=== PATIENT | male | born 1955 | race Caucasian/White ===

== ENCOUNTER 2017-06-19 10:28 | Day surgery (SDC) | payer OTHER | END 2017-06-19 11:11 | disposition home or self-care (01) | LOC: CATHLABREC 10:28 | PROVIDERS: ATTEND Physical Medicine & Rehabilitation | DX: M51.26 Other intervertebral disc displacement, lumbar region (principal); Z53.8 Procedure and treatment not carried out for other reasons ==

== ENCOUNTER 2017-06-26 07:43 | Day surgery (SDC) | payer OTHER ==
[2017-06-26 09:27] LABS: INR 0.95 (0.87-1.13)
[2017-06-26 09:28] LABS: Partial Thromboplastin Time 30.6 Sec. (24.2-36.6)
--- NOTE | 2017-06-26 11:01 | Short Stay Summary ---
Short Stay Documentation Date of service: 06/26/17 Narrative H&P: low back pain with radiculopathy to LLE - History Principal diagnosis: radiculopathy H&P: dictated - Allergies and Medications Current Medications: Allergies No Known Allergies Allergy (Unverified 06/19/17 10:28) Home Medications Medication Instructions Recorded Confirmed Last Taken Type Aspirin EC [Aspirin Enteric Coated 81 mg PO DAILY 06/19/17 06/26/17 06/19/17 History TAB] Diclofenac EC [Voltaren] 75 mg PO TID 06/19/17 06/26/17 06/25/17 History 75mg Pravastatin Sodium [Pravastatin] 20 mg PO QHS 06/19/17 06/26/17 06/18/17 History - Physical exam General appearance: no acute distress Extremities: no ischemia, pulses intact, No edema, Full ROM - Brief post op/procedure progress note Date of procedure: 06/26/17 Pre-op diagnosis: back pain with radiculopathy Post-op diagnosis: same Procedure: lumbar myelogram Anesthesia: local Findings: seen report Surgeon: TIP POP Estimated blood loss: none Pathology: none Condition: stable - Hospital course Hospital course: uneventful - Disposition Condition at discharge: Good Disposition: [id number]-01 TO HOME OR SELFCARE Short Stay Discharge Plan Follow up with: SALINA FENG MD [Primary Care Provider] - 7 Days
--- NOTE | 2017-06-26 11:29 | Fluoroscopy Report ---
FLUOROSCOPY MYELOGRAM LUMBOSACRAL History: Displacement of the lumbar intervertebral disc, back pain, radiculopathy. Description of procedure: Informed consent was obtained. Sterile technique was utilized. 1% lidocaine for skin anesthesia. Using fluoroscopy guidance, lumbar puncture was performed at the L3-4 level. There was spontaneous return of clear CSF. 12 cc of Omnipaque 180 was injected intrathecally. The contrast agent was free flowing throughout the lumbar region. The patient was sent for CT of the lumbar spine without incident. Impression: Successful fluoroscopy-guided lumbar myelogram.
[2017-06-26 13:25] VITALS: BP 108/71
--- NOTE | 2017-06-26 15:19 | Cat Scan Report ---
CT LUMBAR SPINE WITHOUT CONTRAST History: Back pain, radiculopathy, displacement of lumbar intervertebral discs. Technique: Helical CT following intrathecal contrast. Sagittal and coronal reformatted images. Comparison: None. Findings: The conus terminates at the L1-2 level. The cauda equina is within normal limits. There is normal height and alignment of the lumbar vertebral bodies. No evidence for fracture, subluxation or bone lesion. There is mild disc space narrowing at L3-4. The remaining disc spaces are normal height. The facet joints are unremarkable. L1-2: Normal. L2-3: Normal. L3-4: Mild disc space narrowing is evident. There is a mild circumferential bulging disc but no herniation. Minimal facet arthropathy and mild hypertrophy of ligamentum flavum are identified. There is mild central canal narrowing measuring 9 mm in AP dimension. Bilateral neural foraminal narrowing is estimated at 25%. L4-5: A mild circumferential bulging disc is identified. Mild facet arthropathy and mild hypertrophy of ligamentum flavum. There is mild central canal narrowing measuring 9 mm in AP dimension. Bilateral neural foraminal narrowing is estimated at 50%. L5-S1: No significant abnormality. Impression: Mild lumbar spondylosis as outlined above. At L3-4 and L4-5 are the most affected levels. There is no evidence for herniation. Mild central canal narrowing at L3-4 and L4-5.
== END 2017-06-26 13:30 | disposition home or self-care (01) ==
LOC: OPU 07:43 → EDSTATUS 08:00 → OPU 13:30
PROVIDERS: ATTEND Physical Medicine & Rehabilitation
DX: M51.16 Intervertebral disc disorders with radiculopathy, lumbar region (principal); M47.26 Other spondylosis with radiculopathy, lumbar region
CPT/HCPCS: 36415; 62304; 72132; 85610; 85730; Q9965